=== PATIENT | female | born 1960 | race Caucasian/White ===

== ENCOUNTER 2019-12-12 11:42 | Inpatient (IN) ==
--- NOTE | 2019-12-11 08:46 | Anesthesiology Consultation ---
Date of Service December 11, 2019 Assessment & Plan (1) Encounter for pre-operative examination: - Per assessment on 12/10: Travel screen negative. No known COVID-19 positive contacts or current COVID-19 related symptoms. Surgeon arranging preop COVID t esting (done 12/07; [facility])- result was negative. - PCP office visit: 12/09/19: "Patient is a relatively low risk patient for a low risk procedure and no further workup is necessary at this time" Chart Review Chart Review: Acceptable Risk for Surgery and Patient NOT seen in Pre Admission Testing History Surgery Operation Date: 12/12/19 14:35 Proposed Procedures p Right Knee Open Reduction Internal Fixation Comminuted Bicondylar Tibial Plateau Fracture - Monster Mario, Height/Weight Height: 5 ft 4 in Weight: 70.307 kg Allergies Allergy/AdvReac Type Severity Reaction Status Date / Time No Known Allergies Allergy Verified 12/11/19 08:11 Medications Home Medications Medication Instructions Recorded Confirmed Last Taken oxycodone 5 mg PO Q6H PRN #20 tab 12/04/19 12/11/19 Unknown ibuprofen [Advil] 200 - 400 mg PO Q6H PRN 12/11/19 12/11/19 Unknown Past Medical History Medical History (Updated 12/11/19 @ 08:47 by Anabelle Gibbons) Fracture, tibial plateau right Past Family History Family History Brother Family hx of colon cancer Past Surgical History Surgical History H/O foot surgery RT/LEFT (BONE STRAIGHTENING) History of tooth extraction [place] teeth removed Social History Smoking Status: Current every day smoker tobacco type: cigarettes Smoking cigarettes per day: 15 CIG DAILY Do You Dip or Chew Tobacco: No Hx Alcohol Use: Yes Alcohol type: hard liquor alcohol intake frequency: a few times a month Alcohol Intake Frequency Comment: MIXED DRINKS Hx Substance Use: No Testing Laboratory Results 12/09/19 WBC 7.65 H/H 12.9/39.1 PLATELETS 244 GLUCOSE 96 URINE CULTURE negative Electrocardiogram Date: 12/09/19 SR with short NH at 71bpm. Otherwise normal ECG. Chest X-Ray Date: 12/04/19 No acute process within the chest. Possible 8 mm nodule within the base of the left lower lobe. Follow-up nonemergent PA and lateral views of the chest with shallow oblique views is recommended for further evaluation.
--- NOTE | 2019-12-11 16:41 | History & Physical Report ---
Date of Service December 11, 2019 Assessment & Plan (1) Closed bicondylar fracture of right tibial plateau: Schedule a Right Knee Open Reduction Internal Fixation Comminuted, intra- articular Bicondylar Tibial Plateau Fracture for 12.12.2019. All potential risks, benefits, complications, alternatives, and rehab have been discussed with the patient and she wishes to proceed. Plan for ASA 81 mg BID x 30 days for post op DVT prophylaxis. History of Present Illness Chief Complaint: right knee pain Primary Care Provider: Nikole Cuevas DO This is a patient who sustained a fall onto her right knee while at work. She had significant pain and some deformity and was taken to [facility] ER for x-rays. She was noted to have a displaced, comminuted tibial plateau fx. She was sent for a CT scan to evaluate the fx, placed in a knee immobilizer, and referred for surgical management. Allergies Allergy/AdvReac Type Severity Reaction Status Date / Time No Known Allergies Allergy Verified 12/11/19 08:11 Home Medications Home Medications Medication Instructions Recorded Confirmed Type oxycodone 5 mg PO Q6H PRN #20 tab 12/04/19 12/11/19 Rx ibuprofen [Advil] 200 - 400 mg PO Q6H PRN 12/11/19 12/11/19 History Past Med/Surg History Medical History (Updated 12/11/19 @ 16:40 by Dominic Flores PA-C) Fracture, tibial plateau right Surgical History H/O foot surgery RT/LEFT (BONE STRAIGHTENING) History of tooth extraction [place] teeth removed Family History Brother Family hx of colon cancer Social History Smoking Status: Current every day smoker Cigarettes Per Day: 15 CIG DAILY; Second Hand Exposure: Yes; Do You Dip or Chew Tobacco: No; Tobacco Cessation Education Requested by Patient: No Hx Alcohol Use: Yes Alcohol type: hard liquor Hx Substance Use: No Preferred Language: Estonian E Commerce Marketing Manager Required: No Beliefs That Will Affect Care: None Current Living Situation: Family Feels Safe at Home: Yes Safety Concerns: Feels Safe At This Time Assistive Devices: Crutches and Glasses Assistive Devices Comment: READING GLASSES Physical Exam Constitutional: well developed and well nourished; no acute distress ENMT: external ear and nose normal, oropharynx normal Neck: trachea midline, no thyromegaly Respiratory: normal respiratory effort, lungs clear to auscultation Cardiovascular: Rate/Rhythm: regular rate and regular rhythm Gastrointestinal (Abdomen): normal bowel sounds, soft, nontender, no hepatosplenomegaly Musculoskeletal: Knee: + effusion (right ), + limited ROM of knee (right) and + joint line tenderness (right tibial plateau); no skin erythema and no ecchymosis Skin: no rashes, warm and dry Neurologic: normal touch/pain/proprioception Psychiatric: A+Ox3, euthymic affect Speech: normal rate/rhythm/volume of speech Lymphatic: no cervical or axillary lymphadenopathy
[~2019-12-12 11:42] MED LIST: BUPIVACAINE 0.5 % 5 MG/1 ML PF 10ML VIAL ONE; LR 15ML/HR IV SCH; ceFAZolin 1000MG 1,000 MG/7.5 ML SYR IV SCH
[2019-12-12] MEDS ORDERED: ATROPINE SULFATE 0.1 MG/ML 10ML SYR IV PRN (12:15)
[2019-12-12] MEDS ORDERED: ePHEDrine sulfate 50 MG/ML AMP IV PRN (12:15)
[2019-12-12] MEDS ORDERED: ONDANSETRON INJ 2 MG/ML 2 ML VIAL IV PRN ×2 (12:15→19:26)
[2019-12-12] MEDS ORDERED: LIDOCAINE HCL 2% 2 ML VIAL/AMP(20MG/ML) INFIL ONE (12:39)
[2019-12-12] MEDS ORDERED: fentaNYL citrate 100 MCG/2 ML VIAL ONE ×2 (12:39→14:32)
[2019-12-12] MEDS ORDERED: MIDAZOLAM HCL 1 MG/ML 2ML VIAL ONE ×2 (12:39)
[2019-12-12] MEDS ORDERED: PROPOFOL IV EMULSION 10 MG/ML 20 ML VIAL IV ONE (12:39)
[2019-12-12] MEDS ORDERED: ROPIVACAINE 0.5% 5 MG/ML 30 ML VIAL ONE (13:01)
--- NOTE | 2019-12-12 13:01 | History & Physical Bridge Note ---
Date of Service December 12, 2019 History & Physical Bridge Note I have examined the patient, reviewed the History & Physical and in the interval since the performance of the History & Physical I have noted the following changes of clinical significance: no changes noted
[2019-12-12] MEDS ORDERED: BACITRACIN INJ 50,000 UNIT VIAL ONE (13:53)
[2019-12-12] MEDS ORDERED: KETAMINE HCL INJ 50 MG/ML 10 ML VIAL ONE (14:41)
[2019-12-12] MEDS ORDERED: HYDROmorphone INJ 2 MG/ML SYR/VIAL ONE (14:57)
[2019-12-12] MEDS ORDERED: ONDANSETRON INJ 2 MG/ML 2 ML VIAL ONE (16:42)
[2019-12-12] MEDS ORDERED: DEXAMETHASONE SOD INJ 4 MG/ML VIAL ONE (16:42)
[2019-12-12] MEDS ORDERED: GLYCOPYRROLATE 0.2 MG/ML VIAL ONE (16:42)
--- NOTE | 2019-12-12 16:51 | Fluoroscopy Report ---
FL knee RT 1 or 2V CLINICAL HISTORY: RIGHT KNEE TIBIAL PLATEAU COMPARISON STUDY: None. FLUOROSCOPY TIME: 3 minutes and 25 seconds. FINDINGS: 2 fluoroscopic spot images of the proximal tibia demonstrates internal fixation with a late ral cortical plate and screws. The hardware appears intact. Alignment is near-anatomic. IMPRESSION: Fluoroscopy provided for internal fixation of a proximal tibial fracture. ACT 112: Negative or not required by law. Electronically signed by: Villa Patterson M.D. 12/12/2019 4:50 PM
--- NOTE | 2019-12-12 17:22 | Post Operative Brief Note ---
Immediate Post Op Note v1 Date of Surgery December 12, 2019 Pre & Post Diagnosis Operation Date: 12/12/19 13:15 Pre-Op Diagnosis: Right knee comminuted displaced bicondylar Schatzker 6 tibial plateau fracture, lipohemarthrosis knee Post-Op Diagnosis: Right knee comminuted displaced bicondylar Schatzker 6 tibial plateau fracture, lipohemarthrosis knee I identified the patient and participated in the time-out.: Yes Procedure Operation Date: 12/12/19 13:15 Actual Procedures p Right Knee Open Reduction Internal Fixation Comminuted displaced bicondylar Schatzker 6 tibial Plateau Fracture, right knee joint arthrotomy with evacuation lipohemarthrosis (Right) - Monster Mario DO Surgeon Monster Mario DO Costume Shop Manager Dominic Flores PA-C and Giuseppe Nunn PA-C Estimated Blood Loss 25 Findings Consistent with Post-Op Diagnosis Specimens None Anesthesia Type General Regional Complications none Disposition Accompanied Patient To Recovery: No Disposition: Recovery Room
[2019-12-12] MEDS: fentaNYL citrate 100 MCG/2 ML VIAL IV PRN ×4 (17:33→17:55)
--- NOTE | 2019-12-12 17:38 | XRay Report ---
XR knee RT 1 or 2V routine CLINICAL HISTORY: Proximal tibial fracture. Postop. COMPARISON STUDY: Right knee 12/04/2019. FINDINGS: Lateral cortical plate transfixed with screws bridging the proximal tibial fracture. The bell rdware appears intact. Alignment is near-anatomic. Nondisplaced proximal fibular fracture is again no [place]. The external brace obscures fine bony detail. Skin sydnee are noted. IMPRESSION: Status post internal fixation of a proximal right tibial fracture. No evidence for hardw are complication. ACT 112: Negative or not required by law. Electronically signed by: Villa Patterson M.D. 12/12/2019 5:37 PM
[2019-12-12] MEDS ORDERED: HYDROmorphone INJ 1 MG/ML SYRINGE ONE (18:21)
[2019-12-12] MEDS ORDERED: HYDROmorphone INJ 0.5 MG/0.5 ML SYR IV STA (18:22)
--- NOTE | 2019-12-12 18:22 | Anesthesiology Progress Note ---
Date of Service December 12, 2019 Anesthesia Post Procedure Vital Signs Vital Signs: Temp Pulse Pulse Resp BP BP Pulse Ox 12/12/19 18:10 75 17 134/82 96 12/12/19 18:00 80 14 130/77 96 12/12/19 17:50 79 12 155/90 H 99 12/12/19 17:40 79 14 159/92 H 100 12/12/19 17:30 88 12 136/118 H 100 12/12/19 17:21 36.4 C L 76 10 L 148/101 H 100 12/12/19 12:26 36.8 C 86 16 133/83 99 Pain Intensity Right Leg: Pain Intensity: 5 Transfer of Care Handoff Completed per policy Notes Mental Status: alert / awake / arousable Patient Amnestic to Procedure: Yes Nausea / Vomiting: adequately controlled Pain: adequately controlled Airway Patency, RR, SpO2: stable & adequate BP & HR: stable & adequate Hydration State: stable & adequate Anesthetic Complications: no major complications apparent
--- NOTE | 2019-12-12 18:24 | Operative Report (OR) ---
DATE OF OPERATION: 12/12/2019 PREOPERATIVE DIAGNOSES: 1. Right comminuted bicondylar closed Schatzker tibial plateau fracture. 2. Lipohemarthrosis of the right knee. POSTOPERATIVE DIAGNOSES: 1. Right comminuted bicondylar closed Schatzker tibial plateau fracture. 2. Lipohemarthrosis of the right knee. PROCEDURES: 1. Right open reduction and internal fixation of comminuted displaced bicondylar Schatzker tibial plateau fracture. 2. Right knee joint arthrotomy with evacuation of lipohemarthrosis. SURGEON: Monster Mario DO. FIRST ASSISTS: Dominic Flores PA-C and PEPE Howard who were present for patient positioning, sterile prep and drape, management of retractors and instruments. They were present through the critical portions of the case including wound closure, application of sterile dressing and transport of the patient to recovery. ANESTHESIA: General, regional. SPECIMENS: None. DRAINS: None. COMPLICATIONS: None. BLOOD LOSS: 25 mL. PERTINENT HISTORY: This is a 59-year-old female who sustained a trip and fall while at work on to her right knee. She was unable to ambulate. She was transported to [facility]. She was evaluated with radiographs and CT scan, noted to have a Schatzker displaced bicondylar tibial plateau fracture. She was then discharged home with a brace and crutches, followed up at the clinic and then after swelling had been improved, she was then scheduled for surgery as indicated. All potential risks, benefits, complications, alternatives, rehab potential for incomplete relief of symptoms, need for further surgery, DVT, PE, , persistent pain, swelling, scarring, weakness, neurovascular injury, wound complications, hardware failure, nonunion, malunion and bone fracture, with the understanding she will likely need removal of hardware and total knee arthroplasty at some point in the future. She understands these risks, she has decided to proceed with the procedure as indicated. DESCRIPTION OF PROCEDURE: The patient was taken to the operative suite after a femoral nerve block had been administered by the anesthesiologist and placed supine on the operating room table. After review of consent and identification of proper operative site, the patient was anesthetized, LMA was placed. Tourniquet was placed high on the right thigh over cast padding. Right lower extremity was then sterilely prepped and draped in usual fashion, elevated and exsanguinated with an Esmarch bandage, tourniquet inflated to 350 mmHg. Next, a 10 blade scalpel was used to make an incision in a curvilinear fashion extending from the lateral condyle of the femur extending distally over Gerdy's tubercle, proximal tibia and then sweeping anterolaterally approximately 1 cm lateral to the anterior tibial crest. The incision was carefully deepened to the subcutaneous tissue. Meticulous hemostasis was achieved with electrocautery. Fascia was then identified and then approximately 10 mm cuff of the fascia was left attached to the anterior tibia and then swept proximally with a 10 blade scalpel. The muscular tissue was then retracted and then sharply elevated with a periosteal elevator. Next, the 10 blade was then used to split the iliotibial band at its distal attachment at the Gerdy's tubercle and then it was carefully elevated, leaving a cuff of tissue attached to the proximal tibia both anteriorly and posteriorly, revealing the proximal aspect of the lateral tibia. The fracture was clearly identified. It was opened with a freer elevator and then carefully hinged open distally using a dental pick and irrigation and was gently debrided of any immature clot. Next, Chris rake was applied to the iliotibial band, revealing the joint capsule. A joint submeniscal arthrotomy was created with a 10 blade scalpel to release the lipohemarthrosis within the joint noted previously on the CT scan. The lipohemarthrosis then irrigated with pulsatile lavage until clear. This allowed decompression of the joint and also for visualization of the fracture. Next, the primary fracture line with depression of the anterolateral aspect of the tibial plateau was noted. A bone tamp was placed distally through the fracture of the lateral tibial plateau and this was used to carefully tamp the lateral tibial plateau joint surface up to its prefracture alignment. This let a large void in the proximal lateral tibia, which was then filled with cancellous bone chips, which were impacted with a large bone tamp. Next, we stabilized the fracture fragment. The lateral fracture fragment was then hinged closed using a Lai bone forceps to compress the lateral fragment to the medial side using a small stab incision made with a 10 blade scalpel along the medial tibial plateau. After the lateral side was stabilized in a near anatomic position and alignment, it was pinned with multiple 1.6 mm guide pins placed under live fluoroscopic assistance. Once this was stabilized, a lateral proximal tibial plate was then positioned in appropriate fashion and pinned in place with 1.6 mm guide pins under live fluoroscopic assistance. Next, the gliding hole was then filled with a nonlocking screw to compress the plate to the lateral aspect of the tibia mid shaft under live fluoroscopic assistance, stabilizing the lateral column of the proximal tibia into anatomic alignment and position. Next, multiple locking bone screws were placed in the proximal subchondral region at the lateral aspect, 2 medial side after the bone forceps was then repositioned to reduce the medial proximal tibia to the central portion of the tibia and to the lateral stable condyle. This was performed using a valgus force at the joint and then elevating the medial fragments using a large bone tamp placed through a stab percutaneous incision made with a 10 blade scalpel. Care was taken to dissect down with Metzenbaum scissors to identify, retract and protect the hamstring tendons as well as the saphenous vein and the saphenous nerve. After near anatomic alignment and position was achieved with the percutaneous technique for the medial side, multiple locking bone screws were placed from the lateral aspect to the medial fragments to capture the medial fragments in anatomic position and alignment. Next, the medial side was then stabilized with a single 4.5 mm solid screw placed from medial to lateral using a washer as a 1-hole plate construct. This was placed in a buttress mode at the inferior aspect of the medial tibial plateau fracture to prevent any migration of the fracture fragment. Next, the lateral meniscus was then sutured back to the lateral tibial plateau using a combination of transosseous fixation with a free needle and fixation into the small holes in the proximal tibial plate. This provided a watertight closure after copious irrigation was performed with pulsatile lavage with bacitracin. Next, the iliotibial band was closed using interrupted #1 Vicryl sutures. The tibial fascia was then closed using interrupted [id number] #1 Vicryl sutures. Fascia was able to be closed over the plate to perform an anatomic repair of the tissue. Next, the dermis was closed using buried interrupted 2-0 Vicryl, skin was closed using skin sydnee laterally. Next, a medial stab incision was then closed using buried interrupted 2-0 Vicryl sutures and sydnee. Final radiographs were obtained noting anatomic reduction and fixation of the comminuted bicondylar Schatzker tibial plateau fracture. A sterile compressive dressing was applied overwrapped with an Khari wrap. A T scope brace was then applied followed by release of the tourniquet. The patient was awakened and taken to recovery in stable condition. I attest to the content of the Intraoperative Record and any orders documented therein. Any exception s are noted below.
[2019-12-12] MEDS: SODIUM CHLORIDE 0.9% 1000ML 1,000 ML IV SCH (19:15)
[2019-12-12] MEDS ORDERED: METOCLOPRAMIDE HCL INJ 5 MG/ML 2 ML VIAL IV PRN (19:26)
[2019-12-12] MEDS ORDERED: bisacodyL 10 MG SUPP PR PRN (19:26)
[2019-12-12] MEDS ORDERED: diphenhydrAMINE Capsule 25 MG CAP PO PRN (19:26)
[2019-12-12] MEDS ORDERED: ALUMINUM/MAGNESIUM SUSP 30 ML UDC PO PRN (19:26)
[2019-12-12] MEDS ORDERED: MAGNESIUM HYDROXIDE SUSP 30 ML UDC PO PRN (19:26)
[2019-12-12] MEDS ORDERED: HYDROmorphone INJ 0.5 MG/0.5 ML SYR IV PRN (19:26)
[2019-12-12] MEDS ORDERED: NALOXONE HCL 0.4 MG/1 ML VIAL/CARP IV PRN (19:26)
[2019-12-12] MEDS ORDERED: NO NSAIDS SCH (19:26)
[2019-12-12] MEDS: ceFAZolin 2000MG 2,000 MG/15 ML SYR IV SCH (20:39)
[2019-12-12] MEDS: SENNA 8.6 MG TAB PO SCH (21:06)
[2019-12-12] MEDS: DOCUSATE SODIUM 100 MG CAP PO SCH (21:06)
[2019-12-12] MEDS: ACETAMINOPHEN 500 MG TAB PO SCH (21:07)
[2019-12-12] MEDS: ASPIRIN 81 MG ECTAB PO SCH (21:07)
[2019-12-12] MEDS: oxyCODONE HCL IR 5 MG TAB (IMMEDIATE RELEASE) PO PRN (21:31)
[2019-12-13] MEDS: ceFAZolin 2000MG 2,000 MG/15 ML SYR IV SCH (04:26)
[2019-12-13] MEDS: SODIUM CHLORIDE 0.9% 1000ML 1,000 ML IV SCH (04:27)
[2019-12-13] MEDS: ACETAMINOPHEN 500 MG TAB PO SCH ×3 (05:19→20:37)
[2019-12-13 07:36] LABS: Hematocrit (blood only) 37.3 % (37-47); Hemoglobin 12.4 g/dL (12.0-16.0); Mean Corpuscular Hgb Conc 33.2 g/dL (32-36); Mean Corpuscular Volume 96.4 fL (80-100); Mean Platelet Volume 10.9 fL (7.4-10.4); Platelet Count 261 K/uL (130-400); RDW Coefficient of Variation 13.1 % (11.5-14.5); RDW Standard Deviation 45.6 fL (36.4-46.3); Red Blood Count 3.87 M/uL (4.2-5.4); White Blood Count 8.56 K/uL (4.8-10.8)
[2019-12-13 07:52] LABS: BUN Creatinine Ratio 8.4 (10-20); Calcium 8.6 mg/dl (8.5-10.1); Creatinine Clr Calc Pharmacy 68.7 ml/min; Est GFR (African American) 86.9; Potassium 3.8 mmol/L (3.5-5.1)
[2019-12-13] MEDS: ASPIRIN 81 MG ECTAB PO SCH ×2 (08:28→20:37)
[2019-12-13] MEDS: MULTIVITAMIN TAB PO SCH (08:28)
[2019-12-13] MEDS: DOCUSATE SODIUM 100 MG CAP PO SCH ×2 (08:29→20:37)
--- NOTE | 2019-12-13 09:18 | Orthopedic Progress Note ---
Date of Service December 13, 2019 Assessment & Plan (1) Closed bicondylar fracture of right tibial plateau: Postop day 1 status post ORIF right tibial plateau fracture PT/OT protocols. Nonweightbearing right lower extremity. DVT prophylaxis-aspirin p.o. twice daily, SCDmartha, MAVIS abarca. Pain management as written. DC planning-patient planning on returning home. States that she has her to help her at home. Plan to recheck and see how she is progressing today for possible discharge. Admission and Anticipated Discharge Date Admission Date: December 12, 2019 Supervising Physician Co-Signing Physician Notes Patient seen and examined. Postop day 1 after tibial plateau ORIF. She seems quite fatigued and feels "wiped out". We will plan to keep her until tomorrow. Discharge if she improves. Subjective Postop day 1 Patient sitting up in her chair at the bedside eating breakfast. States she has a little bit of soreness this morning in the knee but otherwise feels well. Denies shortness of breath, chest pain, lightheadedness. Pain appears controlled at this time. No other complaints. Physical Exam Physical Exam: Dressings are clean, dry, and intact. Hinged knee brace is on. Calves are soft and nontender. Neurovascular is intact. Toes are mobile. She has good dorsiflexion and plantarflexion of the right foot. Results & Data ([facility]) Vital Signs (Past 12 Hours) Vital Signs Temp Pulse Resp BP Pulse Ox 12/13/19 07:09 36.9 C 73 16 116/75 96 12/13/19 03:59 36.8 C 80 16 113/76 96 12/13/19 00:19 36.9 C 75 16 126/83 97 12/12/19 21:26 36.7 C 84 16 114/77 97 Laboratory Results Laboratory Results WBC 8.56 K/uL (4.8-10.8) 12/13/19 06:58 RBC 3.87 M/uL (4.2-5.4) L 12/13/19 06:58 Hgb 12.4 g/dL (12.0-16.0) 12/13/19 06:58 Hct 37.3 % (37-47) 12/13/19 06:58 MCV 96.4 fL (80-100) 12/13/19 06:58 MCH 32.0 pg (25-34) 12/13/19 06:58 MCHC 33.2 g/dL (32-36) 12/13/19 06:58 RDW Std Deviation 45.6 fL (36.4-46.3) 12/13/19 06:58 RDW Coeff of Martina 13.1 % (11.5-14.5) 12/13/19 06:58 Plt Count 261 K/uL (130-400) 12/13/19 06:58 MPV 10.9 fL (7.4-10.4) H 12/13/19 06:58 Sodium 137 mmol/L (136-145) 12/13/19 06:58 Potassium 3.8 mmol/L (3.5-5.1) 12/13/19 06:58 Chloride 104 mmol/L (98-107) 12/13/19 06:58 Carbon Dioxide 28 mmol/L (21-32) 12/13/19 06:58 Anion Gap 5.0 (3-11) 12/13/19 06:58 BUN 7 mg/dl (7-18) 12/13/19 06:58 Creatinine 0.85 mg/dl (0.6-1.2) 12/13/19 06:58 Est Cr Clr Drug Dosing 68.7 ml/min 12/13/19 06:58 Est GFR ( Amer) 86.9 12/13/19 06:58 Est GFR (Non-Af Amer) 75.0 12/13/19 06:58 BUN/Creatinine Ratio 8.4 (10-20) L 12/13/19 06:58 Glucose 99 mg/dl (70-99) 12/13/19 06:58 Calcium 8.6 mg/dl (8.5-10.1) 12/13/19 06:58 Blood Type A Negative 12/12/19 12:16 Blood Type Recheck A Negative 12/13/19 07:05 Antibody Screen POSITIVE A 12/12/19 12:16 Antibody Identification Anti-S 12/12/19 12:16 Antigen Identification S Antigen - NEGATIVE 12/12/19 12:16 Crossmatch See Detail 12/12/19 12:16
[2019-12-13] MEDS: oxyCODONE HCL IR 5 MG TAB (IMMEDIATE RELEASE) PO PRN ×3 (11:36→23:46)
--- NOTE | 2019-12-13 12:33 | Anesthesiology Progress Note ---
Date of Service December 13, 2019 Anesthesia Post Procedure Vital Signs Vital Signs: Temp Pulse Pulse Resp BP Pulse Ox 12/13/19 07:09 36.9 C 73 16 116/75 96 12/13/19 03:59 36.8 C 80 16 113/76 96 12/13/19 00:19 36.9 C 75 16 126/83 97 12/12/19 21:26 36.7 C 84 16 114/77 97 12/12/19 20:14 36.5 C 66 16 118/81 94 12/12/19 19:45 36.5 C 78 16 128/80 97 12/12/19 19:15 36.5 C 87 15 128/82 100 12/12/19 19:00 82 16 127/81 97 12/12/19 18:45 88 12 118/75 97 12/12/19 18:30 98 H 16 139/76 99 12/12/19 18:20 36.5 C 94 H 14 142/79 H 99 12/12/19 18:10 75 17 134/82 96 12/12/19 18:00 80 14 130/77 96 12/12/19 17:50 79 12 155/90 H 99 12/12/19 17:40 79 14 159/92 H 100 12/12/19 17:30 88 12 136/118 H 100 12/12/19 17:21 36.4 C L 76 10 L 148/101 H 100 Pain Intensity Right Leg: Pain Intensity: 7 Transfer of Care Handoff Completed per policy Notes Mental Status: alert / awake / arousable and participated in evaluation Patient Amnestic to Procedure: Yes Nausea / Vomiting: adequately controlled Pain: adequately controlled Airway Patency, RR, SpO2: stable & adequate BP & HR: stable & adequate Hydration State: stable & adequate Anesthetic Complications: no major complications apparent and Pt Satisfied with anesthetic care
[2019-12-13] MEDS: SENNA 8.6 MG TAB PO SCH (20:36)
[2019-12-14] MEDS: ACETAMINOPHEN 500 MG TAB PO SCH ×2 (05:43→13:53)
--- NOTE | 2019-12-14 07:42 | Orthopedic Progress Note ---
Date of Service December 14, 2019 Assessment & Plan (1) Closed bicondylar fracture of right tibial plateau: Postop day 2 status post ORIF right tibial plateau fracture PT/OT protocols. Nonweightbearing right lower extremity. DVT prophylaxis-aspirin p.o. twice daily, SCDs, MAVIS abarca. Pain management as written. Dressing changed today DC planning-patient planning on returning home. States that she has her to help her at home. We will see how her pain control is and how she is pr ogressing with PT today. Possible discharge to home today. Admission and Anticipated Discharge Date Admission Date: December 12, 2019 Supervising Physician Co-Signing Physician Notes Patient seen and examined. She seems to be doing much better today, and feels like she has more energy. Pain is well controlled in her right knee. Plan for discharge home today. Subjective Postop day 2 Patient lying in bed watching TV. States she is having some right knee discomfort on the lateral aspect where most of her surgery was performed. Mild nausea this morning but she feels it if she has her morning tea that she will be fine. No other complaints. Denies shortness of breath, chest pain, lightheadedness. Physical Exam Physical Exam: Dressings are clean, dry, and intact. Calves are soft nontender. Neurovascular is intact. Toes are mobile Results & Data ([facility]) Vital Signs (Past 12 Hours) Vital Signs Temp Pulse Resp BP Pulse Ox 12/14/19 06:29 36.6 C 89 16 117/83 98 12/13/19 23:35 36.9 C 84 16 114/79 96
[2019-12-14] MEDS: ASPIRIN 81 MG ECTAB PO SCH (08:17)
[2019-12-14] MEDS: MULTIVITAMIN TAB PO SCH (08:17)
[2019-12-14] MEDS: DOCUSATE SODIUM 100 MG CAP PO SCH (08:17)
[2019-12-14] MEDS: oxyCODONE HCL IR 5 MG TAB (IMMEDIATE RELEASE) PO PRN ×2 (08:22→13:58)
--- NOTE | 2019-12-17 09:37 | Discharge Summary ---
Date of Service December 17, 2019 Admission HPI Per Admitting Provider This is a patient who sustained a fall onto her right knee while at work. She had significant pain and some deformity and was taken to [facility] for x-rays. She was noted to have a displaced, comminuted tibial plateau fx. She was sent for a CT scan to evaluate the fx, placed in a knee immobilizer, and referred for surgical management. Principal Diagnosis right tibial plateau fracture Discharge Exam Constitutional well developed and well nourished; no acute distress ENMT external ear and nose normal, oropharynx normal Neck trachea midline, no thyromegaly Respiratory normal respiratory effort, lungs clear to auscultation Cardiovascular Rate/Rhythm: regular rate and regular rhythm Gastrointestinal (Abdomen) normal bowel sounds, soft, nontender, no hepatosplenomegaly Musculoskeletal Knee: + surgical incision (Dressing C/D/I right knee. ); no skin erythema and no ecchymosis Skin no rashes, warm and dry Neurologic normal touch/pain/proprioception Psychiatric A+Ox3, euthymic affect Speech: normal rate/rhythm/volume of speech Lymphatic no cervical or axillary lymphadenopathy Discharge Data Allergies Allergy/AdvReac Type Severity Reaction Status Date / Time No Known Allergies Allergy Verified 10 12:22 Consultations 12/12/19 19:26 Consult Case Management - Discharge Planning Routine Procedures Performed Operation Date: 12/12/19 13:15 Actual Procedures p Right Knee Open Reduction Internal Fixation Comminuted Bicondylar Tibial Plateau Fracture(Right) - Monster Youngblood DO Ordered Studies 12/12/19 05:00 US - OR guided needle placemen Routine 12/12/19 13:15 FL fluoroscopy <1hr Routine FL knee RT 1 or 2V Routine Hospital Course (1) Closed bicondylar fracture of right tibial plateau: Patient was admitted and underwent the noted procedure. POD #1, she was having some nausea with PT. Pain was controlled. Her plan was to go home upon d/c so she was kept another day for PT for NWB status on the RLE. On POD #2, she was doing well and the nausea had resolved. She was d/c'd home later that day. Postop day 2 status post ORIF right tibial plateau fracture PT/OT protocols. Nonweightbearing right lower extremity. DVT prophylaxis-aspirin p.o. twice daily, SCDs, MAVIS hose. Pain management as written. Dressing changed today DC planning-patient planning on returning home. States that she has her to help her at home. We will see how her pain control is and how she is progressing with PT today. Possible discharge to home today. Total Time Total Time Spent Total Time Spent (In Minutes): 60 Discharge Plan Discharge Items Patient Disposition: Home - Self-Care Reason For Visit: Right knee comminuted bicondylar tibial plateau fr Discharge Diagnosis: Right knee comminuted bicondylar tibial plateau fracture Activity: Per Instructions section Weightbearing: Right non-weightbearing Weightbearing Comment: Must wear knee brace locked in extension at all times Non-emergency contact: Surgeon Call non-emergency contact if: your pain is not controlled, your pain is wo rsening, your temperature is above 101, your wound has increased redness and your wound has increased drainage Follow-up/Referrals: Monster Youngblood DO [Surgeon] - Nikole Cuevas DO [Primary Care Provider] - 12/19/19 11:10 am (please arrive 10:55AM) Diet: Regular Addtl Attending Provider Instructions: ACTIVITY RECOMMENDATIONS: Limitations: No weight bearing to affected limb at all times. SPECIAL CARE INSTRUCTIONS: * Take aspirin 81 mg every 12 hours for 30 days for postoperative blood clot prophylaxis. * Wear knee brace at all times and keep brace locked in extension. * Some drainage onto the dressing is normal and is no cause for alarm. * Some swelling is natural especially after walking. * When resting, keep your foot elevated above the level of your heart. * Call [facility] if you notice: -Increased drainage -Fever over 101 degrees F -Severe constant pain BANDAGE: * Changed your bandage daily for the first week, then every other day until seen in office * Keep bandage/cast dry at all times. FOLLOW UP VISIT WITH DR. YOUNGBLOOD If appointment is not already scheduled: Please call [facility] after you get home today to schedule a follow-up appointment for [address] Youngblood at . Pending Studies at Discharge: No Stand-Alone Forms: [employer], Opioid Pain Management, Smoking Cessation Medications and DC Order Prescriptions: New aspirin 81 mg Tablet,Delayed Release (Dr/Ec) 81 mg PO BID 30 Days Qty: 60 RF: 0 acetaminophen 500 mg Tablet 1,000 mg PO Q8 14 Days Qty: 84 RF: 0 Discontinued oxycodone 5 mg tablet 5 mg PO Q6H PRN (Reason: pain) Qty: 20 RF: 0 ibuprofen [Advil] 200 mg Tablet 200 - 400 mg PO Q6H PRN (Reason: Pain) RF: 0 Discharge Orders: Discharge Order (Routine); Ordered 12/14/19 Ordered By: Giuseppe Sutton/Other Patient Handouts: DVT Post Op Prevention Admission Data Admit Date/Time: 12/12/19 17:12 Attending Provider: Monster Youngblood Admit Provider: Monster Youngblood Primary Care Provider: Nikole Cuevas Other Interventions: Discharge Summary Assessment (RN) Last Done: 12/14/19 13:23
== END 2019-12-14 15:06 | disposition home or self-care (01) | DRG 493 ==
LOC: ASU 11:42 → 3E 17:12
DX: S82.141A Displaced bicondylar fracture of right tibia, initial encounter for closed fracture; W18.09XA Striking against other object with subsequent fall, initial encounter; M25.061 Hemarthrosis, right knee; F17.210 Nicotine dependence, cigarettes, uncomplicated